=== PATIENT | female | born 1975 | race Caucasian/White ===

== ENCOUNTER 2021-05-27 11:18 | Emergency (ER) | payer BC ==
[~2021-05-27] VITALS: Ht 157.5 cm; Wt 66.7 kg
[2021-05-27 11:31] VITALS: BP_SYST 124
[2021-05-27] MEDS: PROCHLORPERAZINE EDISYLATE 10 MG/2 ML VIAL IM ONE (12:07)
[2021-05-27] MEDS: KETOROLAC TROMETHAMINE 60 MG/2 ML VIAL IM ONE (12:08)
[2021-05-27 12:55] LABS: BASOPHILS % (AUTO) 0.6 % (0.0-2.0); EOSINOPHILS # (AUTO) 0.3 K/uL (0.0-0.4); EOSINOPHILS % (AUTO) 4.7 % (0.0-4.0); HEMATOCRIT 36.3 % (36-48); HEMOGLOBIN 12.4 g/dL (12.0-16.0); LYMPHOCYTES # (AUTO) 1.9 K/uL (1.0-5.5); MEAN CORPUSCULAR HEMOGLOBIN 29 pg (27-31); MEAN CORPUSCULAR HGB CONC 34 % (32-36); MEAN CORPUSCULAR VOLUME 85 fL (79.0-98.0); MONOCYTES # (AUTO) 0.5 K/uL (0.0-1.0); MONOCYTES % (AUTO) 7.2 % (1.7-9.3); NEUTROPHILS # (AUTO) 3.8 K/uL (1.8-7.7); NEUTROPHILS % (AUTO) 58.5 % (40.0-70.0); PLATELET COUNT (AUTO) 253 K/uL (130-430); RED BLOOD CELL COUNT(AUTO) 4.28 MIL/uL (4.2-6.2); RED CELL DISTRIBUTION WIDTH 13.8 % (9.0-15.0); WHITE BLOOD COUNT (AUTO) 6.6 K/uL (4.8-10.8)
[2021-05-27 13:07] LABS: ANION GAP 4 (5-15); CALCIUM 8.7 mg/dL (8.4-11.0); CHLORIDE 106 mmol/L (98-107); CREATININE 0.58 mg/dL (0.55-1.30); GLUCOSE 109 mg/dL (70-99); POTASSIUM 3.5 mmol/L (3.5-5.1); SODIUM SERUM 142 mmol/L (136-145); UREA NITROGEN, BLOOD 9 mg/dL (8-21)
[2021-05-27 13:08] LABS: GFR AFRICAN AMERICAN 143 mL/min (>90)
[2021-05-27 13:22] LABS: ALANINE AMINOTRANSFERASE 33 U/L (12-78); ALBUMIN 3.4 g/dL (3.4-4.8); ASPARTATE AMINOTRANSFERASE 23 U/L (10-37); THYROID STIMULATING HORMONE 0.73 uIu/mL (0.36-3.74); TOTAL BILIRUBIN 0.2 mg/dL (0.0-1.0)
[2021-05-27] MEDS ORDERED: HYDR-3917 PO (14:36)
[2021-05-27] MEDS ORDERED: IBUP-1969 PO (14:36)
[2021-05-27 14:45] VITALS: BP_SYST 122
== END 2021-05-27 14:44 | disposition home or self-care (01) ==
LOC: SED 11:18
DX: R51.9 Headache, unspecified (principal); R07.9 Chest pain, unspecified
CPT/HCPCS: 36415; 70450; 76376; 80053; 84443; 84484; 85025; 93005; 96372; 99285; J0780; J1885